=== PATIENT | female | born 1960 | race American Indian/Alaskan Native ===

== ENCOUNTER 2016-08-08 15:47 | Emergency (ER) | payer SELFPAY ==
[2016-08-08 16:19] VITALS: BP 162/81
--- NOTE | 2016-08-08 17:51 | Emergency Department Report ---
Entered by ELLIE ROSE, acting as scribe for MARY RIVERA PA. Chief Complaint: Allergic Reaction Stated Complaint: ALLERGIC REACTION - HPI History of Present Illness: Pt is a 56 y.o. female who presents to ED for evaluation of swelling to the lower lip with associated localized lip pain following a bee sting. - Exam Vital Signs: Vital Signs 08/08/16 16:13 Temperature 98.6 F Pulse Rate 89 Respiratory 22 Rate Blood Pressure 162/81 O2 Sat by Pulse 99 Oximetry Physical Exam: GENERAL: Patient is alert and oriented x 3. No apparent distress, normal gait, atraumatic. HEAD: Head is normocephalic and atraumatic. Right lower lip swelling. HEART: Regular rate and rhythm with normal S1/S2 present. No murmurs, rubs, or gallops. LUNGS: Symmetrical with respiration. No wheezing, rales or crackles, CTAB. MSE screening note: Focused history and physical exam performed. Due to findings the following was ordered: EKG. ED Disposition for MSE Condition: Stable This documentation as recorded by the scribe,ELLIE ROSE,accurately reflects the service I personally performed and the decisions made by me,MARY RIVERA PA.
== END 2016-08-08 19:45 | disposition left against medical advice (07) ==
LOC: ED 15:47
DX: T78.40XA Allergy, unspecified, initial encounter (principal); Z53.21 Procedure and treatment not carried out due to patient leaving prior to being seen by health care provider
CPT/HCPCS: 93005; 93010